=== PATIENT | male | born 1935 | race Caucasian/White ===

== ENCOUNTER 2021-01-10 16:25 | Inpatient (IN) | payer MEDICARE, BC ==
[2021-01-10] MEDS ORDERED: Benzonatate 100 MG CAP PO PRN (19:43)
[2021-01-10] MEDS ORDERED: traMADol HCl 50 MG TAB PO PRN (19:45)
[2021-01-10 20:06] VITALS: BMI 41.9
[2021-01-10] MEDS ORDERED: Cefdinir 300 MG CAP PO SCH (21:00)
[2021-01-10] MEDS ORDERED: Apixaban 5 MG TAB PO SCH (21:00)
[2021-01-10] MEDS ORDERED: Cyclobenzaprine 10 MG TAB PO SCH (21:00)
[2021-01-11] MEDS ORDERED: Spironolactone 25 MG TAB PO SCH (08:00)
[2021-01-11] MEDS ORDERED: Benzonatate 100 MG CAP PO PRN (08:37)
[2021-01-11] MEDS ORDERED: Ezetimibe 10 MG TAB PO SCH (09:00)
[2021-01-11] MEDS ORDERED: Aspirin 81 mg Enteric Coated Tablet PO SCH (09:00)
[2021-01-11] MEDS ORDERED: Cholecalciferol (Vitamin D3) 5,000 UNITS CAPSULE PO SCH (09:00)
[2021-01-11] MEDS ORDERED: CLOTRIMAZOLE 1% TOP SCH ×2 (09:00)
[2021-01-11] MEDS ORDERED: Torsemide 20 MG TAB PO SCH (09:00)
[2021-01-11] MEDS ORDERED: Empagliflozin 10 MG TAB PO SCH (09:00)
[2021-01-11] MEDS: traMADol HCl 50 MG TAB PO PRN (09:30)
[2021-01-11] MEDS: Cefdinir 300 MG CAP PO SCH ×2 (09:33→20:39)
[2021-01-11] MEDS: Cholecalciferol (Vitamin D3) 5,000 UNITS CAPSULE PO SCH (09:33)
[2021-01-11] MEDS: Apixaban 5 MG TAB PO SCH ×2 (09:35→20:40)
[2021-01-11] MEDS: Empagliflozin 10 MG TAB PO SCH (09:35)
[2021-01-11] MEDS: Ezetimibe 10 MG TAB PO SCH (09:36)
[2021-01-11] MEDS: Torsemide 20 MG TAB PO SCH (09:36)
[2021-01-11] MEDS: Aspirin 81 mg Enteric Coated Tablet PO SCH (09:37)
[2021-01-11] MEDS: Spironolactone 25 MG TAB PO SCH (09:37)
[2021-01-11] MEDS: Cyclobenzaprine 10 MG TAB PO SCH (20:39)
[2021-01-11] MEDS: Melatonin 3 MG TAB PO PRN (20:40)
[2021-01-12 06:07] LABS: #Basophils 0.1 thou/uL (0.0-0.2); #Eosinphils 0.4 thou/uL (0.0-0.7); #Lymphocytes 1.3 thou/uL (1.20-3.40); #Monocytes 1.1 thou/uL (0.11-0.59); #Neutrophils 8.3 thou/uL (1.40-6.50); %Eosinophils 3.2 % (0.0-10.0); %Lymphocytes 11.6 % (21.0-51.0); %Monocytes 9.8 % (0.0-10.0); %Neutrophils 74.4 % (42.0-75.0); Hemoglobin 18.3 g/dL (14.0-18.0); Mean Corpuscular HGB CONC 34.4 g/dL (32.0-36.0); Mean Corpuscular Hemoglobin 32.9 pg (27.0-31.0); Mean Corpuscular Volume 95.9 fL (78.0-98.0); Mean Platelet Volume 7.1 fL (7.4-10.4); Platelet Count 258 thou/uL (130-400); RBC Distribution Width 12.9 % (11.5-14.5); Red Blood Cell (RBC) Count 5.54 mill/uL (4.70-6.10); White Blood Cell (WBC) Count 11.2 thou/uL (4.8-10.8)
[2021-01-12 06:09] LABS: Anion Gap 19 mmol/L (10-20); BUN (Urea Nitrogen) 28 mg/dL (8.4-25.7); Calc. Creatinine Clearance 85 mL/min (70-130); Calcium 9.5 mg/dL (7.8-10.44); Carbon Dioxide 19 mmol/L (23-31); Chloride 99 mmol/L (98-107); Glucose 124 mg/dL (83-110); Potassium 4.6 mmol/L (3.5-5.1); Sodium 132 mmol/L (136-145)
[2021-01-12] MEDS: Aspirin 81 mg Enteric Coated Tablet PO SCH (08:48)
[2021-01-12] MEDS: Ezetimibe 10 MG TAB PO SCH (08:48)
[2021-01-12] MEDS: Torsemide 20 MG TAB PO SCH (08:49)
[2021-01-12] MEDS: Empagliflozin 10 MG TAB PO SCH (08:49)
[2021-01-12] MEDS: Spironolactone 25 MG TAB PO SCH (08:50)
[2021-01-12] MEDS: Cefdinir 300 MG CAP PO SCH ×2 (08:50→20:41)
[2021-01-12] MEDS: Apixaban 5 MG TAB PO SCH ×2 (08:50→20:42)
[2021-01-12] MEDS: Cholecalciferol (Vitamin D3) 5,000 UNITS CAPSULE PO SCH (08:50)
[2021-01-12] MEDS: traMADol HCl 50 MG TAB PO PRN (08:54)
[2021-01-12] MEDS: Cyclobenzaprine 10 MG TAB PO SCH (20:41)
[2021-01-12] MEDS: Melatonin 3 MG TAB PO PRN (20:42)
[2021-01-12] MEDS: Nystatin Powder 15 GM BOT TOP PRN (20:43)
[2021-01-13] MEDS: Docusate 100 MG CAP PO SCH (09:00)
[2021-01-13] MEDS: Spironolactone 25 MG TAB PO SCH (09:00)
[2021-01-13] MEDS: Torsemide 20 MG TAB PO SCH (09:00)
[2021-01-13] MEDS: Aspirin 81 mg Enteric Coated Tablet PO SCH (09:00)
[2021-01-13] MEDS ORDERED: Polyethylene Glycol 3350 17 GM Packet PO SCH (09:00)
[2021-01-13] MEDS: Empagliflozin 10 MG TAB PO SCH (09:00)
[2021-01-13] MEDS: Apixaban 5 MG TAB PO SCH ×2 (09:00→20:48)
[2021-01-13] MEDS: Cefdinir 300 MG CAP PO SCH ×2 (09:00→20:48)
[2021-01-13] MEDS: Cholecalciferol (Vitamin D3) 5,000 UNITS CAPSULE PO SCH (09:00)
[2021-01-13] MEDS: Ezetimibe 10 MG TAB PO SCH (09:01)
[2021-01-13] MEDS: traMADol HCl 50 MG TAB PO PRN ×2 (09:42→20:50)
[2021-01-13] MEDS: Cyclobenzaprine 10 MG TAB PO SCH (20:48)
[2021-01-13] MEDS: Melatonin 3 MG TAB PO PRN (20:48)
[2021-01-13] MEDS: Rosuvastatin 10 MG TAB PO SCH (20:48)
[2021-01-14] MEDS: Spironolactone 25 MG TAB PO SCH (08:46)
[2021-01-14] MEDS: Cefdinir 300 MG CAP PO SCH ×2 (08:48→20:07)
[2021-01-14] MEDS: Aspirin 81 mg Enteric Coated Tablet PO SCH (08:49)
[2021-01-14] MEDS: Ezetimibe 10 MG TAB PO SCH (08:49)
[2021-01-14] MEDS: Torsemide 20 MG TAB PO SCH (08:49)
[2021-01-14] MEDS: Apixaban 5 MG TAB PO SCH ×2 (08:49→20:07)
[2021-01-14] MEDS: Cholecalciferol (Vitamin D3) 5,000 UNITS CAPSULE PO SCH (08:50)
[2021-01-14] MEDS: Empagliflozin 10 MG TAB PO SCH (08:50)
[2021-01-14] MEDS: Lisinopril 10 MG TAB PO SCH (08:51)
[2021-01-14] MEDS: Docusate 100 MG CAP PO SCH (08:51)
[2021-01-14] MEDS: traMADol HCl 50 MG TAB PO PRN ×2 (11:43→20:07)
[2021-01-14] MEDS: Cyclobenzaprine 10 MG TAB PO SCH (20:07)
[2021-01-14] MEDS: Rosuvastatin 10 MG TAB PO SCH (20:07)
[2021-01-14] MEDS: Melatonin 3 MG TAB PO PRN (20:07)
[2021-01-14] MEDS: Nystatin Powder 15 GM BOT TOP PRN (20:09)
[2021-01-15] MEDS: traMADol HCl 50 MG TAB PO PRN ×2 (04:21→16:28)
[2021-01-15] MEDS: Torsemide 20 MG TAB PO SCH (08:22)
[2021-01-15] MEDS: Apixaban 5 MG TAB PO SCH ×2 (08:23→20:50)
[2021-01-15] MEDS: Lisinopril 10 MG TAB PO SCH (08:23)
[2021-01-15] MEDS: Ezetimibe 10 MG TAB PO SCH (08:23)
[2021-01-15] MEDS: Cefdinir 300 MG CAP PO SCH ×2 (08:23→20:50)
[2021-01-15] MEDS: Aspirin 81 mg Enteric Coated Tablet PO SCH (08:23)
[2021-01-15] MEDS: Cholecalciferol (Vitamin D3) 5,000 UNITS CAPSULE PO SCH (08:23)
[2021-01-15] MEDS: Empagliflozin 10 MG TAB PO SCH (08:24)
[2021-01-15] MEDS: Docusate 100 MG CAP PO SCH (08:24)
[2021-01-15] MEDS: Spironolactone 25 MG TAB PO SCH (08:24)
[2021-01-15] MEDS: Polyethylene Glycol 3350 17 GM Packet PO PRN (08:25)
[2021-01-15] MEDS: Cyclobenzaprine 10 MG TAB PO SCH (20:50)
[2021-01-15] MEDS: Rosuvastatin 10 MG TAB PO SCH (20:50)
[2021-01-16] MEDS: Polyethylene Glycol 3350 17 GM Packet PO PRN (11:00)
[2021-01-16] MEDS: Docusate 100 MG CAP PO SCH (11:02)
[2021-01-16] MEDS: Cholecalciferol (Vitamin D3) 5,000 UNITS CAPSULE PO SCH (11:02)
[2021-01-16] MEDS: Spironolactone 25 MG TAB PO SCH (11:02)
[2021-01-16] MEDS: Torsemide 20 MG TAB PO SCH (11:03)
[2021-01-16] MEDS: Lisinopril 10 MG TAB PO SCH ×2 (11:03→15:57)
[2021-01-16] MEDS: Aspirin 81 mg Enteric Coated Tablet PO SCH (11:03)
[2021-01-16] MEDS: Ezetimibe 10 MG TAB PO SCH (11:03)
[2021-01-16] MEDS: Empagliflozin 10 MG TAB PO SCH (11:04)
[2021-01-16] MEDS: Apixaban 5 MG TAB PO SCH ×2 (11:04→20:35)
[2021-01-16] MEDS: Cefdinir 300 MG CAP PO SCH ×2 (11:04→20:35)
[2021-01-16] MEDS: Nystatin Powder 15 GM BOT TOP PRN ×2 (11:04→20:37)
[2021-01-16] MEDS: Melatonin 3 MG TAB PO PRN (20:35)
[2021-01-16] MEDS: Rosuvastatin 10 MG TAB PO SCH (20:35)
[2021-01-16] MEDS: Cyclobenzaprine 10 MG TAB PO SCH (20:35)
[2021-01-17 06:11] LABS: Hemoglobin 17.5 g/dL (14.0-18.0); Platelet Count 269 thou/uL (130-400)
[2021-01-17 07:22] LABS: Anion Gap 19 mmol/L (10-20); BUN (Urea Nitrogen) 69 mg/dL (8.4-25.7); Calc. Creatinine Clearance 35 mL/min (70-130); Calcium 9.4 mg/dL (7.8-10.44); Carbon Dioxide 26 mmol/L (23-31); Chloride 95 mmol/L (98-107); Glucose 116 mg/dL (83-110); Potassium 4.9 mmol/L (3.5-5.1); Sodium 135 mmol/L (136-145)
[2021-01-17] MEDS: Apixaban 5 MG TAB PO SCH ×2 (15:38→20:54)
[2021-01-17] MEDS: Lisinopril 10 MG TAB PO SCH (15:38)
[2021-01-17] MEDS: Docusate 100 MG CAP PO SCH (15:39)
[2021-01-17] MEDS: Ezetimibe 10 MG TAB PO SCH (15:39)
[2021-01-17] MEDS: Aspirin 81 mg Enteric Coated Tablet PO SCH (15:39)
[2021-01-17] MEDS: Cholecalciferol (Vitamin D3) 5,000 UNITS CAPSULE PO SCH (15:39)
[2021-01-17] MEDS ORDERED: Sodium Chloride 0.9% 1,000 ML IV SCH (15:45)
[2021-01-17] MEDS: Cefdinir 300 MG CAP PO SCH (16:38)
[2021-01-17] MEDS: Rosuvastatin 10 MG TAB PO SCH (20:54)
[2021-01-17] MEDS: Metoprolol Tartrate 25 MG TAB PO SCH (20:54)
[2021-01-17] MEDS: Melatonin 3 MG TAB PO PRN (20:54)
[2021-01-17] MEDS: Cyclobenzaprine 10 MG TAB PO SCH (20:54)
[2021-01-17] MEDS: Sodium Chloride 0.9% 1,000 ML IV SCH (20:55)
[2021-01-17] MEDS ORDERED: Metoprolol Tartrate 25 MG TAB PO SCH (21:00)
[2021-01-18] MEDS: Sodium Chloride 0.9% 1,000 ML IV SCH ×2 (05:59→16:27)
[2021-01-18 06:12] LABS: Anion Gap 16 mmol/L (10-20); BUN (Urea Nitrogen) 48 mg/dL (8.4-25.7); Calc. Creatinine Clearance 62 mL/min (70-130); Calcium 8.2 mg/dL (7.8-10.44); Carbon Dioxide 18 mmol/L (23-31); Chloride 107 mmol/L (98-107); Glucose 107 mg/dL (83-110); Potassium 5.4 mmol/L (3.5-5.1); Sodium 136 mmol/L (136-145)
[2021-01-18] MEDS: Aspirin 81 mg Enteric Coated Tablet PO SCH (08:37)
[2021-01-18] MEDS: Metoprolol Tartrate 25 MG TAB PO SCH ×2 (08:38→20:08)
[2021-01-18] MEDS: Ezetimibe 10 MG TAB PO SCH (08:38)
[2021-01-18] MEDS: Apixaban 5 MG TAB PO SCH ×2 (08:38→20:07)
[2021-01-18] MEDS: Cholecalciferol (Vitamin D3) 5,000 UNITS CAPSULE PO SCH (08:39)
[2021-01-18] MEDS: Docusate 100 MG CAP PO SCH (08:39)
[2021-01-18] MEDS: traMADol HCl 50 MG TAB PO PRN (13:17)
[2021-01-18] MEDS: Gabapentin 300 MG CAP PO SCH (20:07)
[2021-01-18] MEDS: Cyclobenzaprine 10 MG TAB PO SCH (20:07)
[2021-01-18] MEDS: Melatonin 3 MG TAB PO PRN (20:08)
[2021-01-18] MEDS: Rosuvastatin 10 MG TAB PO SCH (20:08)
[2021-01-19] MEDS: Sodium Chloride 0.9% 1,000 ML IV SCH ×2 (02:50→13:53)
[2021-01-19 05:31] LABS: Hemoglobin 15.8 g/dL (14.0-18.0); Mean Corpuscular HGB CONC 33.5 g/dL (32.0-36.0); Mean Corpuscular Hemoglobin 32.4 pg (27.0-31.0); Mean Corpuscular Volume 96.5 fL (78.0-98.0); Red Blood Cell (RBC) Count 4.89 mill/uL (4.70-6.10); White Blood Cell (WBC) Count 8.2 thou/uL (4.8-10.8)
[2021-01-19 05:32] LABS: #Basophils 0.2 thou/uL (0.0-0.2); #Eosinphils 0.3 thou/uL (0.0-0.7); #Lymphocytes 0.6 thou/uL (1.20-3.40); #Monocytes 0.8 thou/uL (0.11-0.59); #Neutrophils 6.4 thou/uL (1.40-6.50); %Basophils 2.2 % (0.0-1.0); %Eosinophils 3.1 % (0.0-10.0); %Lymphocytes 7.6 % (21.0-51.0); %Monocytes 9.4 % (0.0-10.0); %Neutrophils 77.7 % (42.0-75.0); Platelet Count 224 thou/uL (130-400); RBC Distribution Width 13.5 % (11.5-14.5)
[2021-01-19 05:43] LABS: Anion Gap 15 mmol/L (10-20); BUN (Urea Nitrogen) 29 mg/dL (8.4-25.7); Calc. Creatinine Clearance 96 mL/min (70-130); Calcium 8.5 mg/dL (7.8-10.44); Carbon Dioxide 20 mmol/L (23-31); Chloride 108 mmol/L (98-107); Glucose 106 mg/dL (83-110); Potassium 4.6 mmol/L (3.5-5.1); Sodium 138 mmol/L (136-145)
[2021-01-19] MEDS: Docusate 100 MG CAP PO SCH (07:56)
[2021-01-19] MEDS: Metoprolol Tartrate 25 MG TAB PO SCH ×2 (07:56→20:49)
[2021-01-19] MEDS: Aspirin 81 mg Enteric Coated Tablet PO SCH (07:56)
[2021-01-19] MEDS: Ezetimibe 10 MG TAB PO SCH (07:56)
[2021-01-19] MEDS: Cholecalciferol (Vitamin D3) 5,000 UNITS CAPSULE PO SCH (07:57)
[2021-01-19] MEDS: Apixaban 5 MG TAB PO SCH ×2 (09:19→20:47)
[2021-01-19] MEDS: Cyclobenzaprine 10 MG TAB PO PRN (20:45)
[2021-01-19] MEDS: Rosuvastatin 10 MG TAB PO SCH (20:46)
[2021-01-19] MEDS: Gabapentin 300 MG CAP PO SCH (20:47)
[2021-01-20 05:27] LABS: Anion Gap 15 mmol/L (10-20); BUN (Urea Nitrogen) 19 mg/dL (8.4-25.7); Calc. Creatinine Clearance 107 mL/min (70-130); Calcium 8.6 mg/dL (7.8-10.44); Carbon Dioxide 18 mmol/L (23-31); Chloride 108 mmol/L (98-107); Glucose 105 mg/dL (83-110); Potassium 4.4 mmol/L (3.5-5.1); Sodium 137 mmol/L (136-145)
[2021-01-20] MEDS: Aspirin 81 mg Enteric Coated Tablet PO SCH (08:20)
[2021-01-20] MEDS: Metoprolol Tartrate 25 MG TAB PO SCH ×2 (08:20→21:20)
[2021-01-20] MEDS: Docusate 100 MG CAP PO SCH (08:20)
[2021-01-20] MEDS: Ezetimibe 10 MG TAB PO SCH (08:20)
[2021-01-20] MEDS: Cholecalciferol (Vitamin D3) 5,000 UNITS CAPSULE PO SCH (08:20)
[2021-01-20] MEDS: Apixaban 5 MG TAB PO SCH ×2 (08:21→21:20)
[2021-01-20] MEDS: Sodium Chloride 0.9% 1,000 ML IV SCH (10:23)
[2021-01-20] MEDS: traMADol HCl 50 MG TAB PO PRN (13:01)
[2021-01-20] MEDS: Gabapentin 300 MG CAP PO SCH (21:20)
[2021-01-20] MEDS: Rosuvastatin 10 MG TAB PO SCH (21:20)
[2021-01-20] MEDS ORDERED: Furosemide 40 MG/4 ML VIAL SLOW IVP SCH (21:30)
[2021-01-21 05:57] LABS: Anion Gap 16 mmol/L (10-20); BUN (Urea Nitrogen) 17 mg/dL (8.4-25.7); Calc. Creatinine Clearance 118 mL/min (70-130); Calcium 8.9 mg/dL (7.8-10.44); Carbon Dioxide 20 mmol/L (23-31); Chloride 103 mmol/L (98-107); Glucose 113 mg/dL (83-110); Potassium 4.2 mmol/L (3.5-5.1); Sodium 135 mmol/L (136-145)
[2021-01-21] MEDS: Cholecalciferol (Vitamin D3) 5,000 UNITS CAPSULE PO SCH (08:58)
[2021-01-21] MEDS: Ezetimibe 10 MG TAB PO SCH (08:58)
[2021-01-21] MEDS: Metoprolol Tartrate 25 MG TAB PO SCH ×2 (08:59→21:54)
[2021-01-21] MEDS: Torsemide 20 MG TAB PO SCH (08:59)
[2021-01-21] MEDS: Aspirin 81 mg Enteric Coated Tablet PO SCH (08:59)
[2021-01-21] MEDS: Apixaban 5 MG TAB PO SCH ×2 (08:59→21:54)
[2021-01-21] MEDS: Docusate 100 MG CAP PO SCH (09:01)
[2021-01-21] MEDS: Gabapentin 300 MG CAP PO SCH (21:53)
[2021-01-21] MEDS: Rosuvastatin 10 MG TAB PO SCH (21:53)
[2021-01-21] MEDS: Nystatin Powder 15 GM BOT TOP PRN (21:54)
[2021-01-22 05:20] LABS: Anion Gap 16 mmol/L (10-20); BUN (Urea Nitrogen) 22 mg/dL (8.4-25.7); Calc. Creatinine Clearance 106 mL/min (70-130); Calcium 8.7 mg/dL (7.8-10.44); Carbon Dioxide 22 mmol/L (23-31); Chloride 101 mmol/L (98-107); Glucose 108 mg/dL (83-110); Sodium 135 mmol/L (136-145)
[2021-01-22] MEDS: Cholecalciferol (Vitamin D3) 5,000 UNITS CAPSULE PO SCH (08:18)
[2021-01-22] MEDS: Ezetimibe 10 MG TAB PO SCH (08:19)
[2021-01-22] MEDS: Aspirin 81 mg Enteric Coated Tablet PO SCH (08:19)
[2021-01-22] MEDS: Metoprolol Tartrate 25 MG TAB PO SCH ×2 (08:19→20:24)
[2021-01-22] MEDS: Docusate 100 MG CAP PO SCH (08:19)
[2021-01-22] MEDS: Nystatin Powder 15 GM BOT TOP PRN (08:19)
[2021-01-22] MEDS: Torsemide 20 MG TAB PO SCH (08:19)
[2021-01-22] MEDS: Apixaban 5 MG TAB PO SCH ×2 (08:19→20:23)
[2021-01-22 14:25] LABS: #Basophils 0.2 thou/uL (0.0-0.2); #Eosinphils 0.3 thou/uL (0.0-0.7); #Monocytes 0.9 thou/uL (0.11-0.59); #Neutrophils 10.1 thou/uL (1.40-6.50); %Basophils 1.4 % (0.0-1.0); %Eosinophils 2.3 % (0.0-10.0); %Lymphocytes 8.1 % (21.0-51.0); %Monocytes 7.2 % (0.0-10.0); %Neutrophils 81.1 % (42.0-75.0); Hemoglobin 17.6 g/dL (14.0-18.0); Mean Corpuscular HGB CONC 35.8 g/dL (32.0-36.0); Mean Corpuscular Hemoglobin 33.5 pg (27.0-31.0); Mean Corpuscular Volume 93.6 fL (78.0-98.0); Mean Platelet Volume 6.5 fL (7.4-10.4); Platelet Count 250 thou/uL (130-400); RBC Distribution Width 12.8 % (11.5-14.5); Red Blood Cell (RBC) Count 5.25 mill/uL (4.70-6.10); White Blood Cell (WBC) Count 12.4 thou/uL (4.8-10.8)
[2021-01-22 14:38] LABS: ALT (SGPT) 17 U/L (8-55); AST (SGOT) 24 U/L (5-34); Albumin 3.2 g/dL (3.4-4.8); Alkaline Phosphatase 95 U/L (40-110); Anion Gap 18 mmol/L (10-20); BUN (Urea Nitrogen) 23 mg/dL (8.4-25.7); Bilirubin, Total 0.9 mg/dL (0.2-1.2); Calc. Creatinine Clearance 91 mL/min (70-130); Calcium 9.3 mg/dL (7.8-10.44); Carbon Dioxide 26 mmol/L (23-31); Chloride 97 mmol/L (98-107); Globulin 3.4 g/dL (2.4-3.5); Glucose 120 mg/dL (83-110); Potassium 3.8 mmol/L (3.5-5.1); Protein, Total 6.6 g/dL (5.8-8.1); Sodium 137 mmol/L (136-145); Troponin I 0.018 ng/mL (< 0.028)
[2021-01-22] MEDS: Gabapentin 300 MG CAP PO SCH (20:23)
[2021-01-22] MEDS: Rosuvastatin 10 MG TAB PO SCH (20:23)
[2021-01-22] MEDS: Melatonin 3 MG TAB PO PRN (20:33)
[2021-01-23 06:04] LABS: Anion Gap 15 mmol/L (10-20); BUN (Urea Nitrogen) 26 mg/dL (8.4-25.7); Calc. Creatinine Clearance 111 mL/min (70-130); Carbon Dioxide 24 mmol/L (23-31); Chloride 102 mmol/L (98-107); Glucose 125 mg/dL (83-110); Potassium 3.9 mmol/L (3.5-5.1); Sodium 137 mmol/L (136-145)
[2021-01-23] MEDS: Metoprolol Tartrate 25 MG TAB PO SCH ×2 (08:34→20:12)
[2021-01-23] MEDS: Apixaban 5 MG TAB PO SCH ×2 (08:34→20:12)
[2021-01-23] MEDS: Docusate 100 MG CAP PO SCH (08:34)
[2021-01-23] MEDS: Ezetimibe 10 MG TAB PO SCH (08:34)
[2021-01-23] MEDS: Cholecalciferol (Vitamin D3) 5,000 UNITS CAPSULE PO SCH (08:34)
[2021-01-23] MEDS: Aspirin 81 mg Enteric Coated Tablet PO SCH (08:34)
[2021-01-23] MEDS: Torsemide 20 MG TAB PO SCH (08:35)
[2021-01-23] MEDS: Amoxicillin/Potassium Clav 875 MG TAB PO SCH ×2 (09:03→20:12)
[2021-01-23] MEDS: traMADol HCl 50 MG TAB PO PRN ×2 (10:48→16:25)
[2021-01-23] MEDS: Acetaminophen 325 MG TAB PO PRN (20:12)
[2021-01-23] MEDS: Cyclobenzaprine 10 MG TAB PO PRN (20:12)
[2021-01-23] MEDS: Rosuvastatin 10 MG TAB PO SCH (20:12)
[2021-01-23] MEDS: Gabapentin 300 MG CAP PO SCH (20:13)
[2021-01-23] MEDS: Melatonin 3 MG TAB PO PRN (20:13)
[2021-01-23] MEDS: Polyethylene Glycol 3350 17 GM Packet PO PRN (20:14)
[2021-01-24 05:17] LABS: Anion Gap 18 mmol/L (10-20); BUN (Urea Nitrogen) 30 mg/dL (8.4-25.7); Calc. Creatinine Clearance 93 mL/min (70-130); Carbon Dioxide 23 mmol/L (23-31); Chloride 101 mmol/L (98-107); Glucose 113 mg/dL (83-110); Potassium 3.8 mmol/L (3.5-5.1); Sodium 138 mmol/L (136-145)
[2021-01-24] MEDS: Apixaban 5 MG TAB PO SCH ×2 (08:45→20:55)
[2021-01-24] MEDS: Metoprolol Tartrate 25 MG TAB PO SCH ×2 (08:45→20:56)
[2021-01-24] MEDS: Amoxicillin/Potassium Clav 875 MG TAB PO SCH ×2 (08:45→20:54)
[2021-01-24] MEDS: Ezetimibe 10 MG TAB PO SCH (08:45)
[2021-01-24] MEDS: Cholecalciferol (Vitamin D3) 5,000 UNITS CAPSULE PO SCH (08:45)
[2021-01-24] MEDS: Aspirin 81 mg Enteric Coated Tablet PO SCH (08:46)
[2021-01-24] MEDS: Docusate 100 MG CAP PO SCH (08:46)
[2021-01-24] MEDS: Torsemide 20 MG TAB PO SCH (08:46)
[2021-01-24] MEDS: Polyethylene Glycol 3350 17 GM Packet PO PRN (10:14)
[2021-01-24] MEDS: Nystatin Powder 15 GM BOT TOP PRN (10:15)
[2021-01-24] MEDS: traMADol HCl 50 MG TAB PO PRN (11:20)
[2021-01-24] MEDS: Cyclobenzaprine 10 MG TAB PO PRN (20:54)
[2021-01-24] MEDS: Gabapentin 300 MG CAP PO SCH (20:55)
[2021-01-24] MEDS: Melatonin 3 MG TAB PO PRN (20:56)
[2021-01-24] MEDS: Rosuvastatin 10 MG TAB PO SCH (20:57)
[2021-01-25] MEDS: traMADol HCl 50 MG TAB PO PRN (09:14)
[2021-01-25] MEDS: Cholecalciferol (Vitamin D3) 5,000 UNITS CAPSULE PO SCH (09:15)
[2021-01-25] MEDS: Ezetimibe 10 MG TAB PO SCH (09:16)
[2021-01-25] MEDS: Docusate 100 MG CAP PO SCH (09:16)
[2021-01-25] MEDS: Apixaban 5 MG TAB PO SCH ×2 (09:16→20:53)
[2021-01-25] MEDS: Amoxicillin/Potassium Clav 875 MG TAB PO SCH ×2 (09:16→20:51)
[2021-01-25] MEDS: Aspirin 81 mg Enteric Coated Tablet PO SCH (09:17)
[2021-01-25] MEDS: Metoprolol Tartrate 25 MG TAB PO SCH ×2 (09:17→20:53)
[2021-01-25] MEDS: Torsemide 20 MG TAB PO SCH (09:17)
[2021-01-25 09:54] LABS: Anion Gap 18 mmol/L (10-20); BUN (Urea Nitrogen) 30 mg/dL (8.4-25.7); Calc. Creatinine Clearance 90 mL/min (70-130); Calcium 8.8 mg/dL (7.8-10.44); Carbon Dioxide 25 mmol/L (23-31); Chloride 100 mmol/L (98-107); Glucose 111 mg/dL (83-110); Potassium 3.8 mmol/L (3.5-5.1); Sodium 139 mmol/L (136-145)
[2021-01-25] MEDS: Gabapentin 300 MG CAP PO SCH (20:51)
[2021-01-25] MEDS: Rosuvastatin 10 MG TAB PO SCH (20:51)
[2021-01-25] MEDS: Polyethylene Glycol 3350 17 GM Packet PO PRN (20:51)
[2021-01-26 05:25] LABS: Anion Gap 17 mmol/L (10-20); BUN (Urea Nitrogen) 31 mg/dL (8.4-25.7); Calc. Creatinine Clearance 101 mL/min (70-130); Calcium 9.1 mg/dL (7.8-10.44); Carbon Dioxide 24 mmol/L (23-31); Chloride 102 mmol/L (98-107); Glucose 107 mg/dL (83-110); Sodium 139 mmol/L (136-145)
[2021-01-26] MEDS: Ezetimibe 10 MG TAB PO SCH (09:00)
[2021-01-26] MEDS: Cholecalciferol (Vitamin D3) 5,000 UNITS CAPSULE PO SCH (09:00)
[2021-01-26] MEDS: Torsemide 20 MG TAB PO SCH (09:00)
[2021-01-26] MEDS: Metoprolol Tartrate 25 MG TAB PO SCH ×2 (09:01→20:30)
[2021-01-26] MEDS: Amoxicillin/Potassium Clav 875 MG TAB PO SCH ×2 (09:01→20:30)
[2021-01-26] MEDS: Aspirin 81 mg Enteric Coated Tablet PO SCH (09:01)
[2021-01-26] MEDS: Apixaban 5 MG TAB PO SCH ×2 (09:01→20:30)
[2021-01-26] MEDS: Docusate 100 MG CAP PO SCH (09:01)
[2021-01-26] MEDS: traMADol HCl 50 MG TAB PO PRN (15:25)
[2021-01-26] MEDS: Gabapentin 300 MG CAP PO SCH (20:30)
[2021-01-26] MEDS: Cyclobenzaprine 10 MG TAB PO PRN (20:30)
[2021-01-26] MEDS: Melatonin 3 MG TAB PO PRN (20:30)
[2021-01-26] MEDS: Rosuvastatin 10 MG TAB PO SCH (20:30)
[2021-01-27 05:41] LABS: Anion Gap 16 mmol/L (10-20); BUN (Urea Nitrogen) 27 mg/dL (8.4-25.7); Calc. Creatinine Clearance 100 mL/min (70-130); Calcium 9.1 mg/dL (7.8-10.44); Carbon Dioxide 28 mmol/L (23-31); Chloride 99 mmol/L (98-107); Glucose 116 mg/dL (83-110); Potassium 3.9 mmol/L (3.5-5.1); Sodium 139 mmol/L (136-145)
[2021-01-27] MEDS: traMADol HCl 50 MG TAB PO PRN ×3 (05:55→23:17)
[2021-01-27] MEDS: Cholecalciferol (Vitamin D3) 5,000 UNITS CAPSULE PO SCH (08:38)
[2021-01-27] MEDS: Apixaban 5 MG TAB PO SCH ×2 (08:39→21:05)
[2021-01-27] MEDS: Metoprolol Tartrate 25 MG TAB PO SCH ×2 (08:39→21:04)
[2021-01-27] MEDS: Acetaminophen 325 MG TAB PO PRN (08:39)
[2021-01-27] MEDS: Docusate 100 MG CAP PO SCH (08:39)
[2021-01-27] MEDS: Aspirin 81 mg Enteric Coated Tablet PO SCH (08:39)
[2021-01-27] MEDS: Ezetimibe 10 MG TAB PO SCH (08:39)
[2021-01-27] MEDS: Amoxicillin/Potassium Clav 875 MG TAB PO SCH ×2 (08:39→21:04)
[2021-01-27] MEDS: Torsemide 20 MG TAB PO SCH (08:39)
[2021-01-27] MEDS: Nystatin Powder 15 GM BOT TOP PRN (09:00)
[2021-01-27] MEDS: Rosuvastatin 10 MG TAB PO SCH (21:04)
[2021-01-27] MEDS: Melatonin 3 MG TAB PO PRN (21:04)
[2021-01-27] MEDS: Cyclobenzaprine 10 MG TAB PO PRN (21:04)
[2021-01-27] MEDS: Gabapentin 300 MG CAP PO SCH (21:05)
[2021-01-28] MEDS: Cholecalciferol (Vitamin D3) 5,000 UNITS CAPSULE PO SCH (09:05)
[2021-01-28] MEDS: Apixaban 5 MG TAB PO SCH ×2 (09:06→20:59)
[2021-01-28] MEDS: Metoprolol Tartrate 25 MG TAB PO SCH ×2 (09:06→21:00)
[2021-01-28] MEDS: Torsemide 20 MG TAB PO SCH (09:06)
[2021-01-28] MEDS: Docusate 100 MG CAP PO SCH (09:06)
[2021-01-28] MEDS: Amoxicillin/Potassium Clav 875 MG TAB PO SCH ×2 (09:06→20:59)
[2021-01-28] MEDS: Aspirin 81 mg Enteric Coated Tablet PO SCH (09:06)
[2021-01-28] MEDS: Ezetimibe 10 MG TAB PO SCH (09:06)
[2021-01-28] MEDS: Nystatin Powder 15 GM BOT TOP PRN (09:06)
[2021-01-28] MEDS: Rosuvastatin 10 MG TAB PO SCH (20:59)
[2021-01-28] MEDS: Melatonin 3 MG TAB PO PRN (20:59)
[2021-01-28] MEDS: Cyclobenzaprine 10 MG TAB PO PRN (20:59)
[2021-01-28] MEDS: Gabapentin 300 MG CAP PO SCH (21:00)
[2021-01-29] MEDS: traMADol HCl 50 MG TAB PO PRN ×3 (04:26→18:36)
[2021-01-29] MEDS: Cholecalciferol (Vitamin D3) 5,000 UNITS CAPSULE PO SCH (09:06)
[2021-01-29] MEDS: Docusate 100 MG CAP PO SCH (09:07)
[2021-01-29] MEDS: Metoprolol Tartrate 25 MG TAB PO SCH ×2 (09:07→20:38)
[2021-01-29] MEDS: Amoxicillin/Potassium Clav 875 MG TAB PO SCH ×2 (09:07→20:37)
[2021-01-29] MEDS: Torsemide 20 MG TAB PO SCH (09:07)
[2021-01-29] MEDS: Ezetimibe 10 MG TAB PO SCH (09:07)
[2021-01-29] MEDS: Apixaban 5 MG TAB PO SCH ×2 (09:07→20:39)
[2021-01-29] MEDS: Aspirin 81 mg Enteric Coated Tablet PO SCH (09:07)
[2021-01-29] MEDS: Cyclobenzaprine 10 MG TAB PO PRN (18:37)
[2021-01-29] MEDS: Rosuvastatin 10 MG TAB PO SCH (20:37)
[2021-01-29] MEDS: Melatonin 3 MG TAB PO PRN (20:38)
[2021-01-29] MEDS: Gabapentin 300 MG CAP PO SCH (20:39)
[2021-01-30] MEDS: Nystatin Powder 15 GM BOT TOP PRN (04:45)
[2021-01-30] MEDS: traMADol HCl 50 MG TAB PO PRN (05:55)
[2021-01-30] MEDS: Ezetimibe 10 MG TAB PO SCH (08:17)
[2021-01-30] MEDS: Aspirin 81 mg Enteric Coated Tablet PO SCH (08:17)
[2021-01-30] MEDS: Cholecalciferol (Vitamin D3) 5,000 UNITS CAPSULE PO SCH (08:17)
[2021-01-30] MEDS: Apixaban 5 MG TAB PO SCH ×2 (08:17→21:17)
[2021-01-30] MEDS: Torsemide 20 MG TAB PO SCH (08:18)
[2021-01-30] MEDS: Metoprolol Tartrate 25 MG TAB PO SCH ×2 (08:18→21:17)
[2021-01-30] MEDS: Docusate 100 MG CAP PO SCH (08:18)
[2021-01-30] MEDS: Polyethylene Glycol 3350 17 GM Packet PO PRN (08:44)
[2021-01-30] MEDS: Acetaminophen 325 MG TAB PO PRN (08:49)
[2021-01-30] MEDS: Gabapentin 300 MG CAP PO SCH (21:17)
[2021-01-30] MEDS: Rosuvastatin 10 MG TAB PO SCH (21:17)
[2021-01-30] MEDS: Melatonin 3 MG TAB PO PRN (21:17)
[2021-01-30] MEDS: Cyclobenzaprine 10 MG TAB PO PRN (21:17)
[2021-01-31 05:19] LABS: Hemoglobin 16.6 g/dL (14.0-18.0); Platelet Count 185 thou/uL (130-400)
[2021-01-31] MEDS: traMADol HCl 50 MG TAB PO PRN (09:31)
[2021-01-31] MEDS: Apixaban 5 MG TAB PO SCH ×2 (09:31→21:22)
[2021-01-31] MEDS: Docusate 100 MG CAP PO SCH (09:31)
[2021-01-31] MEDS: Ezetimibe 10 MG TAB PO SCH (09:31)
[2021-01-31] MEDS: Metoprolol Tartrate 25 MG TAB PO SCH ×2 (09:31→21:23)
[2021-01-31] MEDS: Cholecalciferol (Vitamin D3) 5,000 UNITS CAPSULE PO SCH (09:31)
[2021-01-31] MEDS: Aspirin 81 mg Enteric Coated Tablet PO SCH (09:31)
[2021-01-31] MEDS: Torsemide 20 MG TAB PO SCH (09:31)
[2021-01-31] MEDS ORDERED: Acetaminophen 325 MG TAB ONE (11:17)
[2021-01-31] MEDS: Cyclobenzaprine 10 MG TAB PO PRN (21:22)
[2021-01-31] MEDS: Rosuvastatin 10 MG TAB PO SCH (21:23)
[2021-01-31] MEDS: Melatonin 3 MG TAB PO PRN (21:23)
[2021-01-31] MEDS: Gabapentin 300 MG CAP PO SCH (21:23)
[2021-02-01] MEDS: traMADol HCl 50 MG TAB PO PRN ×2 (01:06→11:34)
[2021-02-01] MEDS: Aspirin 81 mg Enteric Coated Tablet PO SCH (08:51)
[2021-02-01] MEDS: Cholecalciferol (Vitamin D3) 5,000 UNITS CAPSULE PO SCH (08:51)
[2021-02-01] MEDS: Docusate 100 MG CAP PO SCH (08:52)
[2021-02-01] MEDS: Ezetimibe 10 MG TAB PO SCH (08:52)
[2021-02-01] MEDS: Metoprolol Tartrate 25 MG TAB PO SCH ×2 (08:53→20:21)
[2021-02-01] MEDS: Apixaban 5 MG TAB PO SCH ×2 (08:53→20:20)
[2021-02-01] MEDS: Acetaminophen 325 MG TAB PO PRN (08:54)
[2021-02-01] MEDS: Torsemide 20 MG TAB PO SCH (08:55)
[2021-02-01] MEDS: Rosuvastatin 10 MG TAB PO SCH (20:20)
[2021-02-01] MEDS: Cyclobenzaprine 10 MG TAB PO PRN (20:20)
[2021-02-01] MEDS: Gabapentin 300 MG CAP PO SCH (20:21)
[2021-02-01] MEDS: Melatonin 3 MG TAB PO PRN (20:21)
[2021-02-02] MEDS: Acetaminophen 325 MG TAB PO PRN (06:02)
[2021-02-02] MEDS: Ezetimibe 10 MG TAB PO SCH (09:35)
[2021-02-02] MEDS: Aspirin 81 mg Enteric Coated Tablet PO SCH (09:35)
[2021-02-02] MEDS: Apixaban 5 MG TAB PO SCH ×2 (09:35→19:50)
[2021-02-02] MEDS: Cholecalciferol (Vitamin D3) 5,000 UNITS CAPSULE PO SCH (09:35)
[2021-02-02] MEDS: Docusate 100 MG CAP PO SCH (09:35)
[2021-02-02] MEDS: Torsemide 20 MG TAB PO SCH (09:36)
[2021-02-02] MEDS: Metoprolol Tartrate 25 MG TAB PO SCH ×2 (09:36→19:50)
[2021-02-02] MEDS: traMADol HCl 50 MG TAB PO PRN ×2 (14:27→19:51)
[2021-02-02 18:49] VITALS: BP 108/67; TEMP 96.1
[2021-02-02] MEDS: Rosuvastatin 10 MG TAB PO SCH (19:50)
[2021-02-02] MEDS: Gabapentin 300 MG CAP PO SCH (19:50)
== END 2021-02-02 20:14 | DRG 948 ==
LOC: BURMED 16:25
PROVIDERS: ADMIT Family Medicine; ATTEND Family Medicine
DX: R53.81 Other malaise (principal); I50.42 Chronic combined systolic (congestive) and diastolic (congestive) heart failure; N17.9 Acute kidney failure, unspecified; L03.90 Cellulitis, unspecified; R29.898 Other symptoms and signs involving the musculoskeletal system; L30.4 Erythema intertrigo; G89.29 Other chronic pain; E11.9 Type 2 diabetes mellitus without complications; I12.9 Hypertensive chronic kidney disease with stage 1 through stage 4 chronic kidney disease, or unspecified chronic kidney disease; I25.10 Atherosclerotic heart disease of native coronary artery without angina pectoris; E78.5 Hyperlipidemia, unspecified; K59.00 Constipation, unspecified; I87.2 Venous insufficiency (chronic) (peripheral); I48.91 Unspecified atrial fibrillation; M54.41 Lumbago with sciatica, right side; I95.89 Other hypotension; E86.1 Hypovolemia; E86.0 Dehydration; Z79.82 Long term (current) use of aspirin; Z95.1 Presence of aortocoronary bypass graft
CPT/HCPCS: 36415; 36416; 71045; 80048; 83880; 84484; 85014; 85018; 85025; 85049; 87040; 87086; J1940; J7050

== ENCOUNTER 2021-01-17 10:09 | Emergency (ER) | payer MEDICARE, BC ==
[2021-01-17 10:25] LABS: #Basophils 0.2 thou/uL (0.0-0.2); #Eosinphils 0.2 thou/uL (0.0-0.7); #Lymphocytes 1.4 thou/uL (1.20-3.40); #Monocytes 1.1 thou/uL (0.11-0.59); #Neutrophils 11.1 thou/uL (1.40-6.50); %Basophils 1.2 % (0.0-1.0); %Eosinophils 1.7 % (0.0-10.0); %Lymphocytes 9.7 % (21.0-51.0); %Monocytes 7.9 % (0.0-10.0); %Neutrophils 79.5 % (42.0-75.0); Hemoglobin 17.2 g/dL (14.0-18.0); Mean Corpuscular HGB CONC 34.3 g/dL (32.0-36.0); Mean Corpuscular Hemoglobin 32.6 pg (27.0-31.0); Mean Corpuscular Volume 94.9 fL (78.0-98.0); Mean Platelet Volume 6.5 fL (7.4-10.4); Platelet Count 294 thou/uL (130-400); RBC Distribution Width 13.4 % (11.5-14.5); Red Blood Cell (RBC) Count 5.27 mill/uL (4.70-6.10)
[2021-01-17 10:35] LABS: ALT (SGPT) 19 U/L (8-55); AST (SGOT) 19 U/L (5-34); Alkaline Phosphatase 78 U/L (40-110); Anion Gap 22 mmol/L (10-20); BUN (Urea Nitrogen) 70 mg/dL (8.4-25.7); Bilirubin, Total 1.1 mg/dL (0.2-1.2); Calc. Creatinine Clearance 0 mL/min (70-130); Carbon Dioxide 21 mmol/L (23-31); Chloride 97 mmol/L (98-107); Globulin 3.2 g/dL (2.4-3.5); Glucose 111 mg/dL (83-110); Potassium 4.5 mmol/L (3.5-5.1); Protein, Total 6.2 g/dL (5.8-8.1); Sodium 135 mmol/L (136-145)
[2021-01-17 10:55] LABS: CKMB 1.4 ng/mL (0-6.6)
[2021-01-17] MEDS ORDERED: cefTRIAXone\\ROCEPHIN 2 GM VIAL ONE (12:50)
[2021-01-17 12:52] LABS: Anion Gap 16 mmol/L (10-20); BUN (Urea Nitrogen) 33 mg/dL (8.4-25.7); Calc. Creatinine Clearance 0 mL/min (70-130); Calcium 7.8 mg/dL (7.8-10.44); Carbon Dioxide 22 mmol/L (23-31); Chloride 104 mmol/L (98-107); Glucose 114 mg/dL (83-110); Potassium 4.2 mmol/L (3.5-5.1); Sodium 138 mmol/L (136-145)
[2021-01-17 13:26] LABS: Bilirubin Negative (Negative); Blood, Urine Negative (Negative); Clarity Clear (Clear); Glucose, Urine (Dipstick) 250 mg/dL (Negative); Ketone, Urine Negative (Negative); Leukocyte Negative (Negative); Nitrite Negative (Negative); Protein, Urine (Dipstick) Negative (Neg-Trace); Specific Gravity, Urine 1.015 (1.005-1.030); Urobilinogen 0.2 mg/dL (Less than 2)
[2021-01-17 14:49] LABS: Anion Gap 18 mmol/L (10-20); BUN (Urea Nitrogen) 64 mg/dL (8.4-25.7); Calc. Creatinine Clearance 0 mL/min (70-130); Calcium 8.3 mg/dL (7.8-10.44); Carbon Dioxide 22 mmol/L (23-31); Chloride 101 mmol/L (98-107); Glucose 109 mg/dL (83-110); Potassium 4.2 mmol/L (3.5-5.1); Sodium 137 mmol/L (136-145)
== END 2021-01-17 17:00 | disposition critical access hospital (66) ==
LOC: BURERS 10:09
DX: I95.9 Hypotension, unspecified (principal); N17.9 Acute kidney failure, unspecified; E86.0 Dehydration; I50.9 Heart failure, unspecified
CPT/HCPCS: 36415; 71045; 81003; 82553; 83605; 83880; 84484; 85025; 93005; 96374; J0696

== ENCOUNTER 2021-07-26 17:48 | Outpatient (CLI) | payer MEDICARE, BC ==
[2021-07-26 18:16] LABS: #Basophils 0.1 thou/uL (0.0-0.2); #Eosinphils 0.3 thou/uL (0.0-0.7); #Monocytes 0.9 thou/uL (0.11-0.59); #Neutrophils 4.4 thou/uL (1.40-6.50); %Basophils 1.3 % (0.0-1.0); %Eosinophils 4.4 % (0.0-10.0); %Lymphocytes 14.2 % (21.0-51.0); %Monocytes 13.8 % (0.0-10.0); %Neutrophils 66.3 % (42.0-75.0); Hemoglobin 14.5 g/dL (14.0-18.0); Mean Corpuscular HGB CONC 35.3 g/dL (32.0-36.0); Mean Corpuscular Hemoglobin 33.9 pg (27.0-31.0); Mean Platelet Volume 7.4 fL (7.4-10.4); Platelet Count 150 thou/uL (130-400); RBC Distribution Width 13.4 % (11.5-14.5); Red Blood Cell (RBC) Count 4.29 mill/uL (4.70-6.10); White Blood Cell (WBC) Count 6.7 thou/uL (4.8-10.8)
[2021-07-26 18:28] LABS: ALT (SGPT) 19 U/L (8-55); AST (SGOT) 31 U/L (5-34); Albumin 3.5 g/dL (3.4-4.8); Alkaline Phosphatase 79 U/L (40-110); Anion Gap 17 mmol/L (10-20); BUN (Urea Nitrogen) 18 mg/dL (8.4-25.7); Calc. Creatinine Clearance 0 mL/min (70-130); Carbon Dioxide 25 mmol/L (23-31); Cardiac Risk 5.4 (Less than 4.5); Chloride 102 mmol/L (98-107); Cholesterol 152 mg/dl (< 200 Desired); Globulin 2.2 g/dL (2.4-3.5); Glucose 82 mg/dL (83-110); HDL Cholesterol 28 mg/dL (>60 Neg Risk); LDL Cholesterol, Calculated 102 mg/dL; Potassium 4.5 mmol/L (3.5-5.1); Protein, Total 5.7 g/dL (5.8-8.1); Sodium 139 mmol/L (136-145); Triglycerides 108 mg/dL (Less than 150)
== END 2021-07-26 17:49 | disposition home or self-care (01) ==
LOC: BURMANOR 17:48
PROVIDERS: ATTEND Family Medicine
DX: I50.9 Heart failure, unspecified (principal); I25.9 Chronic ischemic heart disease, unspecified; E11.9 Type 2 diabetes mellitus without complications
CPT/HCPCS: 80053; 80061; 85025

== ENCOUNTER 2021-08-08 15:43 | Outpatient (CLI) | payer MEDICARE, BC | END 2021-08-08 15:44 | disposition home or self-care (01) | LOC: BURMANOR 15:43 | PROVIDERS: ATTEND Registered Nurse Community Health | DX: R60.0 Localized edema (principal) | CPT/HCPCS: 83880 ==

== ENCOUNTER 2021-11-16 15:28 | Outpatient (CLI) | payer MEDICARE, BC | END 2021-11-16 15:29 | disposition home or self-care (01) | LOC: BUREKG 15:28 | PROVIDERS: ATTEND Registered Nurse Community Health | DX: R07.89 Other chest pain (principal) | CPT/HCPCS: 71046; 93005; 93010 ==

== ENCOUNTER 2021-11-18 13:45 | Emergency (ER) | payer MEDICARE, BC ==
[2021-11-18 14:41] LABS: #Basophils 0.1 thou/uL (0.0-0.2); #Eosinphils 0.3 thou/uL (0.0-0.7); #Lymphocytes 1.1 thou/uL (1.20-3.40); #Monocytes 0.4 thou/uL (0.11-0.59); #Neutrophils 3.9 thou/uL (1.40-6.50); %Basophils 1.1 % (0.0-1.0); %Eosinophils 5.9 % (0.0-10.0); %Lymphocytes 18.4 % (21.0-51.0); %Monocytes 6.8 % (0.0-10.0); %Neutrophils 67.8 % (42.0-75.0); Hemoglobin 15.4 g/dL (14.0-18.0); Mean Corpuscular Hemoglobin 31.7 pg (27.0-31.0); Mean Corpuscular Volume 96.1 fL (78.0-98.0); Platelet Count 164 thou/uL (130-400); RBC Distribution Width 13.4 % (11.5-14.5); Red Blood Cell (RBC) Count 4.86 mill/uL (4.70-6.10); White Blood Cell (WBC) Count 5.7 thou/uL (4.8-10.8)
[2021-11-18 14:46] LABS: ALT (SGPT) 16 U/L (8-55); AST (SGOT) 31 U/L (5-34); Albumin 3.6 g/dL (3.4-4.8); Alkaline Phosphatase 66 U/L (40-110); Anion Gap 15 mmol/L (10-20); BUN (Urea Nitrogen) 21 mg/dL (8.4-25.7); Bilirubin, Total 0.7 mg/dL (0.2-1.2); Calc. Creatinine Clearance 0 mL/min (70-130); Calcium 9.4 mg/dL (7.8-10.44); Carbon Dioxide 24 mmol/L (23-31); Chloride 104 mmol/L (98-107); Globulin 2.9 g/dL (2.4-3.5); Glucose 101 mg/dL (83-110); Protein, Total 6.5 g/dL (5.8-8.1); Sodium 138 mmol/L (136-145)
== END 2021-11-18 15:31 ==
LOC: BURERS 13:45
DX: S20.211A Contusion of right front wall of thorax, initial encounter (principal); I50.9 Heart failure, unspecified; Z79.899 Other long term (current) drug therapy; Z79.82 Long term (current) use of aspirin; Z79.01 Long term (current) use of anticoagulants; X58.XXXA Exposure to other specified factors, initial encounter
CPT/HCPCS: 71045; 80053; 84484; 85025; 93005; 94760

== ENCOUNTER 2022-04-24 13:03 | Outpatient (CLI) | payer MEDICARE, BC | END 2022-04-24 13:04 | disposition home or self-care (01) | LOC: BURRAD 13:03 | PROVIDERS: ATTEND Nurse Practitioner Family | DX: M25.532 Pain in left wrist (principal) ==

== ENCOUNTER 2022-06-01 15:35 | Outpatient (CLI) | payer MEDICARE, BC ==
[2022-06-01 15:54] LABS: Anion Gap 16 mmol/L (10-20); BUN (Urea Nitrogen) 19 mg/dL (8.4-25.7); Calc. Creatinine Clearance 0 mL/min (70-130); Calcium 8.7 mg/dL (7.8-10.44); Carbon Dioxide 24 mmol/L (23-31); Chloride 106 mmol/L (98-107); Estimated GFR 64; Glucose 116 mg/dL (83-110); Potassium 4.1 mmol/L (3.5-5.1); Sodium 142 mmol/L (136-145)
== END 2022-06-01 15:36 | disposition home or self-care (01) ==
LOC: BURMANOR 15:35
PROVIDERS: ATTEND Nurse Practitioner Family
DX: I50.9 Heart failure, unspecified (principal); I25.10 Atherosclerotic heart disease of native coronary artery without angina pectoris
CPT/HCPCS: 80048; 83880